=== PATIENT | female | born 1975 | race Caucasian/White ===

== ENCOUNTER 2024-07-02 00:36 | Emergency (ER) | payer OTHER, SELFPAY ==
[2024-07-02 00:48] VITALS: BP 162/95
--- NOTE | 2024-07-02 01:20 | ED.SKININJ ---
HPI-Injury
<SANJAY Vanegas (Lenka) - Last Filed: 07/02/24 03:14>
General
Chief Complaint: Bite
Source: patient
Exam Limitations: none
Time Seen by Provider: 07/02/24 00:57
Nursing documentation reviewed up to this point in time: agreed with
History of Present Illness-Injury
Is this injury a work related problem?: No
Is pt an associate of [facility]?: No
Initial Injury comments:
Pt is a 49 yo female who presents to the ED with facial lacerations from a dog bite x 3 hours (07/01 around 2300). [place] and was walking her dog when an unknown dog ran at her. She got in-between the two dogs, and the
unknown dog punctured her L upper lip and grazed her L infraorbital area. Pt washed the area with soap and water. The offending dog was unleashed, without an paper colorer. She did not recognize the dog, unsure if it was UTD on vaccinations. She denies
changes to her vision, fevers, chills, LUCIO oral mucosa injury, tooth injury, ocular injury.
Unsure of last Tdap.
No known allergies to penicillins, pt has tolerated amoxicillin in the past.
Past History
<SANJAY Vanegas (Lenka) - Last Filed: 07/02/24 03:14>
Past History
ED Past Medical History: None
ED Past Surgical History: Gynecological (ablation for fibroids,lumpectomy) and Tonsilectomy
Social History
Tobacco: Non-smoker
Alcohol: Occasional
Drug: None
Personal:
Living: with family
Employment: Employed
Family History
Family History: Other (noncontributory)
Skin Exam
<SANJAY Vanegas (Lenka) - Last Filed: 07/02/24 03:14>
Abrasion
Left Upper Cheek:
Description of abrasion: superfical/clean (left infraorbital region)
Bite
Left Upper Lip:
Type: animal (unknown dog, unsure about vaccination status)
Laceration length in cm: 1
Surrounding area around bite has: area of erythema/swelling
Distal skin color and temperature: normal-warm & good color
Phy Exam
<SANJAY Vanegas (Lenka) - Last Filed: 07/02/24 03:14>
General Physical Exam
General Presentation: well appearing and no apparent distress
General age: appears stated age
General Skin: warm and dry
General Habitus: normal
General Mental: alert
General Hydration: appears well hydrated
ENT Exam
ENT Exam: swallowing well
Eye Exam
Eye Exam: PERRL and conjunctiva normal
Cardiovascular Exam
Cardiovascular Exam: normal peripheral pulses
Pulmonary Exam
Pulmonary Exam: no respiratory distress
Skin Exam
Skin Exam: laceration
Course
<SANJAY Vanegas (Lenka) - Last Filed: 07/02/24 03:14>
Orders/Labs/Results
Orders:
Orders
07/02/24 01:53
Tetanus/Diphth/Acelpertussis [Adacel] 0.5 ml IM .ONCE ONE
07/02/24 01:55
Amoxicillin 875 mg/Clav 125 mg [Augmentin 875 mg/125 mg] 1 tablet PO NOW STA
07/02/24 01:59
Rabies Immune Globulin/Pf [HyperRAB] 2,020 unit IM NOW STA
07/02/24 02:00
Rabies Vaccine (Pcec)/Pf [Rabavert Rabies Vacc W-Diluent] 2.5 unit IM .ONCE ONE
Vital Signs
Initial and Last Documented VS:
Initial Vital Signs
Temp Pulse Resp BP Pulse Ox
98.7 F 85 16 162/95 96
07/02/24 00:48 07/02/24 00:48 07/02/24 00:48 07/02/24 00:48 07/02/24 00:48
Last Documented Vital Signs
Temp Pulse Resp BP Pulse Ox
98.7 F 85 16 162/95 96
07/02/24 00:48 07/02/24 00:48 07/02/24 00:48 07/02/24 00:48 07/02/24 00:48
<Minor Alex, - Last Filed: 07/02/24 03:08>
Orders/Labs/Results
Orders:
Orders
07/02/24 01:53
Tetanus/Diphth/Acelpertussis [Adacel] 0.5 ml IM .ONCE ONE
07/02/24 01:55
Amoxicillin 875 mg/Clav 125 mg [Augmentin 875 mg/125 mg] 1 tablet PO NOW STA
07/02/24 01:59
Rabies Immune Globulin/Pf [HyperRAB] 2,020 unit IM NOW STA
07/02/24 02:00
Rabies Vaccine (Pcec)/Pf [Rabavert Rabies Vacc W-Diluent] 2.5 unit IM .ONCE ONE
Vital Signs
Initial and Last Documented VS:
Initial Vital Signs
Temp Pulse Resp BP Pulse Ox
98.7 F 85 16 162/ 96
07/02/24 00:48 07/02/24 00:48 07/02/24 00:48 07/02/24 00:48 07/02/24 00:48
Last Documented Vital Signs
Temp Pulse Resp BP Pulse Ox
98.7 F 85 16 162/95 96
07/02/24 00:48 07/02/24 00:48 07/02/24 00:48 07/02/24 00:48 07/02/24 00:48
<SANJAY Vanegas (Lenka) - Last Filed: 07/02/24 03:14>
MDM/Problems Addressed
Differential Diagnosis Includes:
Pt with upper L lip laceration/abrasion and superficial L infraorbital abrasion x 3 hours from an unknown dog, unknown vaccination status of dog.
Given unknown dog rabies vaccination status, will offer patient rabies PPX.
Pt unsure of her last Tdap, will offer Tdap.
Pt with no prior hx of allergic reactions to penicillins, will start on Augmentin.
<Lulu Warren) SANJAY Powers - Last Filed: 07/02/24 03:14>
*Critical Care Note
Total Time (30-74mins, 75-104mins- exclusive of procedures): Not Applicable
ED Attending Note
<SANJAY Vanegas (Lenka) - Last Filed: 07/02/24 03:14>
-
Portions of this chart may have been created with voice recognition software.� Occasional wrong word or��sound alike� substitutions may have occurred due to the inherent limitations of voice recognition software.
<Minor Alex DO - Last Filed: 07/02/24 03:08>
ED Attending Note
Patient seen and examined by attending physician: Yes
I performed the substantive portion of visit, reviewed & personally made and approve the management plan that is documented in note by myself or HOWARD.: Yes
ED Attending Note:
49-year-old female who presents after she was walking on her property [place] large property and was attacked by what she suspects was a dog. She is not sure whose dog it was and is not 100% sure it was dog but suspects it once. She states she
got in between her dog and the other animal. She suffered injuries to her face. Unknown last tetanus. Exam: Skin avulsion noted to the left upper lip. She is missing skin in this area. It does cross the vermilion border and is about half
centimeter in length. She also has a small avulsion of the skin to the left of her nose under her eye. There is no eye involvement. No hyphema. Assessment and plan: Unfortunately closure of the wound is not obtainable due to the loss of skin.
Will refer to plastics. Given the fact that the animal is unknown, treat with rabies immunoglobulin and rabies vaccine. Also cover with antibiotics.
Discharge Plan
Departure
Patient Disposition: Home (Routine Discharge)
Date of Disposition: 07/02/24
Time of Disposition: 03:06
Patient with high blood pressure during this ER visit?: Yes
Condition: Good
Discharge Problem:
Dog bite, Need for prophylactic vaccination against rabies, Encounter for prophylactic administration of rabies immune globulin
Instructions: Animal Bites (DC), Rabies Vaccine, BLOOD PRESSURE, Rabies
Prescriptions:
New
amoxicillin-pot clavulanate 875-125 mg tablet
1 tab PO BID Qty: 14 0RF
Referrals:
Bienvenido Harden DO [Family Provider] -
John Mathew DO [Active] - Follow up in 2-3 days (Open wound to lip, around baylee border. Appreciate recs for closure and wound management.)
Stand Alone Forms: Rabies Vaccine Post Exp Dosing
Activity Restrictions/Additional Instructions:
Please follow up with plastic surgery on Thursday (07/04). Follow up with your primary care physician in one month to ensure proper healing.
Keep the wound moist with antibiotic ointment for the first two days, and then with Vaseline or Aquaphor at least twice a day until healed. Limit UV exposure of wound.
Please return to the emergency department if you develop fevers, chills, muscle aches, redness, swelling, pus drainage, or worsening pain around the wound.
You were given rabies immune globulin and the first dose of your rabies vaccination series in the emergency department tonight. Subsequent vaccinations can be obtained through the Outpatient Infusion department by calling .
You were prescribed 7 days of Augmentin, please take this twice a day, once in the morning, once at night.
Interventions
Interventions:
*Risk Screen - Suicide Last Done: 07/02/24 00:48
*Neglect/Abuse Screening Last Done: 07/02/24 00:48
*ED COVID-19 Vaccine History Last Done: 07/02/24 00:48
ED-Skin Assessment Last Done: 07/02/24 01:34
Discharge Date and Time
Print Language: [email or web address]
[2024-07-02 01:34] VITALS: BMI 37.6
[2024-07-02] MEDS: ADACEL 0.5 ML IM (02:04)
[2024-07-02] MEDS: AUGMENTIN 875 MG/125 MG 1 TABLET PO (02:04)
[2024-07-02] MEDS: RABAVERT RABIES VACC W-DILUENT 2.5 UNIT IM (02:14)
[2024-07-02] MEDS: HyperRAB 2020 UNIT IM (02:21)
== END 2024-07-02 03:21 | disposition home or self-care (01) ==
LOC: EMR 00:36
PROVIDERS: EMERGENCY PHYSICIAN Emergency Medicine; FAMILY PHYSICIAN Family Medicine
DX: S01.85XA Open bite of other part of head, initial encounter (principal); Z20.3 Contact with and (suspected) exposure to rabies; Z23 Encounter for immunization; Z29.14 Encounter for prophylactic rabies immune globulin; W54.0XXA Bitten by dog, initial encounter; Y93.K1 Activity, walking an animal
CPT/HCPCS: 99282; 90471; 90472; 96372; 90375; 90675; 90715

== ENCOUNTER 2024-07-15 11:37 | Outpatient (RCR) | payer OTHER, SELFPAY ==
[2024-07-05 14:30] VITALS: BP 154/84
[2024-07-05] MEDS: RABAVERT RABIES VACC W-DILUENT 2.5 UNIT IM (15:07)
[2024-07-08] MEDS: RABAVERT RABIES VACC W-DILUENT 2.5 UNIT IM (14:58)
[2024-07-15] MEDS: RABAVERT RABIES VACC W-DILUENT 2.5 UNIT IM (11:58)
== END 2024-07-16 23:59 | disposition home or self-care (01) ==
LOC: OID 11:37
PROVIDERS: ATTENDING PHYSICIAN Emergency Medicine; PRIMARYCARE PHYSICIAN Family Medicine
DX: Z23 Encounter for immunization (principal); Z20.3 Contact with and (suspected) exposure to rabies
CPT/HCPCS: 90471; 90675